=== PATIENT | female | born 1985 | race African-American/Black ===

== ENCOUNTER 2020-08-01 13:34 | Emergency (ER) | payer MEDICAID ==
[~2020-08-01] VITALS: Ht 177.8 cm; Wt 97.5 kg
[2020-08-01 14:01] VITALS: BP 122/79
[2020-08-01] MEDS ORDERED: HYDROCODONE/APAP 5/325MG TABLET PO ONE (14:30)
[2020-08-01] MEDS ORDERED: HYDROCODONE/APAP 5/325MG TABLET ONE (14:36)
[2020-08-01] MEDS ORDERED: ONDANSETRON 4 MG TAB.RAPDIS ONE (14:36)
--- NOTE | 2020-08-01 14:39 | NUR ---
RADIOLOGY AT BEDSIDE FOR R KNEE XRAY.
[2020-08-01] MEDS: ONDANSETRON 4 MG TAB.RAPDIS SL ONE ×2 (14:45→15:00)
[2020-08-01] MEDS ORDERED: DICL50TA7 PO (15:58)
== END 2020-08-01 16:07 | disposition home or self-care (01) ==
LOC: ER 13:38
DX: M25.561 Pain in right knee (principal); Z98.890 Other specified postprocedural states; Z79.899 Other long term (current) drug therapy
CPT/HCPCS: 73564; 99283; Q0162